=== PATIENT | male | born 1930 | race Caucasian/White ===

== ENCOUNTER → 2016-08-29 | Outpatient (CLI) | payer MEDICARE, OTHER ==
[~2016-08-29] MED LIST: ACET-1757 PO; ASPI-621 PO; BISA5TAB5 PO; CALC-141 PO; CHOL20002 PO; CYAN10005 PO; CYAN10008 PO; CYCL-259 PO; DIGO125T PO; DOCU-30 PO; ENOX80SY4 SQ; EZET1TAB18 PO; FINA5TAB4 PO; FURO40TA6 PO; GABA-826 PO; GLUC1TAB53 PO; GLUC1TAB55 PO; HYDR-3144 PO; IBUP800T PO; INSU100I18 SQ; LEVO1CAP3 PO; LISI-167 PO; MAGN400O4 PO; MELO-184 PO; METF500T4 PO; METO-93 PO; METO25TA91 PO; METO50TA11 PO; MULT-154 PO; OMEG-133 PO; OMEGA 3 PO; PANT40TA5 PO; POTA20TA14 PO; RABE20TA26 PO; RABE20TA5 PO; RANI150T4 PO; SIMV10TA3 PO; WARF2.5T73 PO-COUM; WARF5TAB7 PO; WARF5TAB7 PO-COUM; WARF7.5T PO
== END | disposition home or self-care (01) ==
LOC: CFH 10:23
PROVIDERS: ATTEND Urology
DX: N28.1 Cyst of kidney, acquired (principal); N32.3 Diverticulum of bladder; Z87.442 Personal history of urinary calculi
CPT/HCPCS: 76770

== ENCOUNTER → 2016-10-27 | Outpatient (CLI) | payer MEDICARE, OTHER ==
[~2016-10-27] MED LIST changes: +CYAN100072 PO; -CYAN10008 PO; +DOCU-131 PO; -DOCU-30 PO; -EZET1TAB18 PO; +EZET1TAB26 PO; -HYDR-3144 PO; +HYDR-3245 PO; +IBUP-1223 PO; -IBUP800T PO; -MAGN400O4 PO; +MAGN400O7 PO; -MELO-184 PO; +MELO15TA24 PO; +RABE20TA18 PO; -RABE20TA5 PO
== END | disposition home or self-care (01) ==
LOC: CFH 10:26
PROVIDERS: ATTEND Internal Medicine Cardiovascular Disease
DX: I08.1 Rheumatic disorders of both mitral and tricuspid valves (principal); I10 Essential (primary) hypertension; I48.91 Unspecified atrial fibrillation; E11.9 Type 2 diabetes mellitus without complications; R06.02 Shortness of breath; R42 Dizziness and giddiness; Z95.0 Presence of cardiac pacemaker; Z87.891 Personal history of nicotine dependence
CPT/HCPCS: 93306

== ENCOUNTER 2017-02-04 19:15 | Emergency (ER) | payer MEDICARE, OTHER ==
[~2017-02-04] VITALS: Ht 152.4 cm; Wt 71.0 kg
[~2017-02-04 19:15] MED LIST changes: +METO-264 PO; -METO50TA11 PO
[2017-02-04 19:26] VITALS: BP 111/71
[2017-02-04] MEDS ORDERED: DIPH,PERTUSS(ACELL),TET VAC/PF 0.5 ML IM-VACC ONE ×2 (19:47→20:00)
== END 2017-02-04 20:17 | disposition home or self-care (01) ==
LOC: ED 20:06
DX: S61.451A Open bite of right hand, initial encounter (principal); I10 Essential (primary) hypertension; E11.9 Type 2 diabetes mellitus without complications; W54.0XXA Bitten by dog, initial encounter; Y93.89 Activity, other specified; Y92.89 Other specified places as the place of occurrence of the external cause; Y99.8 Other external cause status
CPT/HCPCS: 90471; 90715

== ENCOUNTER → 2017-10-31 | Outpatient (CLI) | payer MEDICARE, OTHER ==
[~2017-10-31] MED LIST changes: -CHOL20002 PO; +CHOL200052 PO; +METF500T17 PO; -METF500T4 PO; +WARF-36 PO; +WARF-36 PO-COUM; -WARF5TAB7 PO; -WARF5TAB7 PO-COUM
== END | disposition home or self-care (01) ==
LOC: CFH 10:50
PROVIDERS: ATTEND Internal Medicine Cardiovascular Disease
DX: I08.1 Rheumatic disorders of both mitral and tricuspid valves (principal); I10 Essential (primary) hypertension; I48.91 Unspecified atrial fibrillation; E11.9 Type 2 diabetes mellitus without complications; R06.02 Shortness of breath; F17.210 Nicotine dependence, cigarettes, uncomplicated
CPT/HCPCS: 93306

== ENCOUNTER 2018-05-22 08:56 | Emergency (ER) | payer MEDICARE, OTHER ==
[~2018-05-22] VITALS: Ht 172.7 cm; Wt 68.3 kg
[~2018-05-22 08:56] MED LIST changes: -ASPI-621 PO; +ASPI81TA45 PO; +TRAM50TA2 PO; +WARF2.5T32 PO-COUM; -WARF2.5T73 PO-COUM
--- NOTE | 2018-05-22 09:17 | NUR ---
PT AMBULATORY TO ROOM 40 W/ C/O WEAKNESS/DIZZINESS/SOB STARTED LAST NOC. PT STATES HX CHF AND PT STATES IT FEELS LIKE HIS PREVIOUS CHF EXACERBATIONS. SOB WORSE WHEN LAYING DOWN. PER PT NO INCREASED BLE SWELLING. PT RESTING ON GURNEY. WARM BLANKET PROVIDED. MONITORS APPLIED. ERP DR. DIOP AT BEDSIDE.
[2018-05-22] MEDS ORDERED: SODIUM CHLORIDE FLUSH 10ML SYR IVF ONE (09:30)
[2018-05-22] MEDS ORDERED: FUROSEMIDE 40 MG/4 ML IVP ONE (09:30)
[2018-05-22] MEDS ORDERED: MECL-76 PO (09:35)
[2018-05-22] MEDS ORDERED: IRON15TA3 PO (09:35)
[2018-05-22] MEDS ORDERED: RANI150C PO (09:35)
[2018-05-22] MEDS ORDERED: FUROSEMIDE 40 MG/4 ML ONE (09:54)
[2018-05-22 10:11] LABS: MEAN CORPUSCULAR HEMOGLOBIN 35.5 pg (27.5-34.5); MEAN CORPUSCULAR HGB CONC 33.8 g/dL (33.2-36.2); MEAN CORPUSCULAR VOLUME 105.2 fL (81-97); MEAN PLATELET VOLUME 7.4 fL (7.4-10.4); PLATELET COUNT 188 x10^3/uL (130-400); RED BLOOD COUNT 3.68 x10^6/uL (4.38-5.82); RED CELL DISTRIBUTION WIDTH 14.8 % (9.4-14.8)
[2018-05-22 10:12] LABS: ALANINE AMINOTRANSFERASE 17 U/L (12-78); ALBUMIN 3.4 g/dL (3.4-5.0); ANION GAP 5 mmol/L (5-15); CALCIUM 8.5 mg/dL (8.5-10.1); CHLORIDE 101 mmol/L (98-107); CREATININE 1.18 mg/dL (0.7-1.3)
[2018-05-22 10:20] LABS: ALKALINE PHOSPHATASE 103 U/L (45-117); BILIRUBIN,TOTAL 0.6 mg/dL (0.2-1.0); TOTAL PROTEIN 7.1 g/dL (6.4-8.2); TROPONIN I 0.029 ng/mL (0.000-0.045)
[2018-05-22 10:34] LABS: MD YES
[2018-05-22 10:37] LABS: ANISOCYTOSIS 1+; BANDS%(MANUAL) 5 % (0-7); LYMPH#(MANUAL) 0.44 x10^3/uL (1-3.4); LYMPHS% (MANUAL) 11 % (22-44); MONOS#(MANUAL) 0.52 x10^3/uL (0.3-2.7); MONOS% (MANUAL) 13 % (2-9); SEG#(MANUAL) 2.84 x10^3/uL (1.8-6.8); SEGS% (MANUAL) 71 % (42-75)
[2018-05-22 10:38] LABS: <PLATELET ESTIMATE> ADEQUATE; <PLT MORPHOLOGY> NORMAL PLT MORPH; POLYCHROMASIA 1+
--- NOTE | 2018-05-22 10:49 | NUR ---
PT RESTING ON GURNEY. NADN. SALDANA.
--- NOTE | 2018-05-22 10:52 | NUR ---
ECHO AT BEDSIDE.
--- NOTE | 2018-05-22 11:38 | NUR ---
ECHO REMAINS AT BEDSIDE. PT SLEEPING ON HELLEN. NADN. SALDANA.
--- NOTE | 2018-05-22 12:43 | NUR ---
PT RESTING ON GURNEY. NADN. SALDANA. PT CHART REVIEWED AND PLACED FOR RECHECK.
--- NOTE | 2018-05-22 14:43 | NUR ---
RACQUEL BYRD AT BEDSIDE DISCUSSING O2 OPTIONS.
--- NOTE | 2018-05-22 14:59 | NUR ---
SPOKE W/ ROCHELLE WHO STATES OKAY TO DC PT. IF ANY O2 QUESTIONS ARISE, THE PATIENT/ERP WILL BE NOTIFIED
[2018-05-22 15:00] VITALS: BP 106/66
== END 2018-05-22 15:12 | disposition home or self-care (01) ==
LOC: ED 09:54
DX: I48.2 Chronic atrial fibrillation (principal); I11.0 Hypertensive heart disease with heart failure; I50.9 Heart failure, unspecified; E11.9 Type 2 diabetes mellitus without complications; I25.10 Atherosclerotic heart disease of native coronary artery without angina pectoris; Z95.0 Presence of cardiac pacemaker; Z86.73 Personal history of transient ischemic attack (TIA), and cerebral infarction without residual deficits; Z95.2 Presence of prosthetic heart valve; Z95.5 Presence of coronary angioplasty implant and graft
CPT/HCPCS: 36415; 71045; 80053; 83880; 84484; 85025; 87040; 93005; 93306; 96374; 99284; J1940

== ENCOUNTER → 2019-01-21 | Outpatient (CLI) | payer MEDICARE, OTHER ==
[~2019-01-21] MED LIST changes: -ACET-1757 PO; +ACET-2065 PO; +CYAN-27 PO; -CYAN10005 PO; +IRON15TA3 PO; +MECL-76 PO; +RANI150C PO
== END | disposition home or self-care (01) ==
LOC: CFH 12:06
PROVIDERS: ATTEND Nurse Practitioner Family
DX: I65.23 Occlusion and stenosis of bilateral carotid arteries (principal)
CPT/HCPCS: 93880

== ENCOUNTER → 2019-07-19 | Outpatient (CLI) | payer MEDICARE, OTHER ==
[~2019-07-19] MED LIST changes: -DIGO125T PO; +DIGO125T85 PO; +SIMV10TA18 PO; -SIMV10TA3 PO
== END | disposition home or self-care (01) ==
LOC: CVU 13:49
PROVIDERS: ATTEND Internal Medicine Cardiovascular Disease
DX: I65.23 Occlusion and stenosis of bilateral carotid arteries (principal)
CPT/HCPCS: 93880

== ENCOUNTER 2019-09-19 16:12 | Emergency (ER) | payer MEDICARE, OTHER ==
[~2019-09-19] VITALS: Ht 167.6 cm; Wt 66.0 kg
[2019-09-19 17:01] LABS: BASOPHILS # (AUTO) 0.03 x10^3/uL (0-0.1); BASOPHILS % (AUTO) 1 % (0-1); EOSINOPHILS # (AUTO) 0.04 x10^3/uL (0-0.4); EOSINOPHILS % (AUTO) 1 % (1-7); LYMPHOCYTES # (AUTO) 0.73 x10^3/uL (1-3.4); LYMPHOCYTES % (AUTO) 12 % (22-44); MD NO; MEAN CORPUSCULAR HEMOGLOBIN 34.7 pg (27.5-34.5); MEAN CORPUSCULAR HGB CONC 32.9 g/dL (33.2-36.2); MEAN CORPUSCULAR VOLUME 105.3 fL (81-97); MEAN PLATELET VOLUME 7.5 fL (7.4-10.4); MONOCYTES # (AUTO) 0.76 x10^3/uL (0.2-0.8); MONOCYTES % (AUTO) 12 % (2-9); NEUTROPHILS # (AUTO) 4.66 x10^3/uL (1.8-6.8); NEUTROPHILS % (AUTO) 75 % (42-75); PLATELET COUNT 256 x10^3/uL (130-400); RED BLOOD COUNT 3.84 x10^6/uL (4.38-5.82); RED CELL DISTRIBUTION WIDTH 16.3 % (9.4-14.8)
[2019-09-19 17:06] LABS: ALBUMIN 3.8 g/dL (3.4-5.0); ANION GAP 5 mmol/L (5-15); CALCIUM 9.5 mg/dL (8.5-10.1); CHLORIDE 109 mmol/L (98-107)
[2019-09-19 17:12] LABS: ALANINE AMINOTRANSFERASE 28 U/L (12-78); ALKALINE PHOSPHATASE 136 U/L (45-117); BILIRUBIN,TOTAL 0.5 mg/dL (0.2-1.0); TOTAL PROTEIN 7.7 g/dL (6.4-8.2); TROPONIN I < 0.015 ng/mL (0.000-0.045)
--- NOTE | 2019-09-19 18:18 | NUR ---
PEDIATRIC PHYSICAL THERAPIST: PT TO ROOM FROM SANKET WINN
[2019-09-19] MEDS ORDERED: FUROSEMIDE 20 MG TABLET PO ONE (19:00)
[2019-09-19] MEDS ORDERED: FUROSEMIDE 20 MG TABLET ONE (19:19)
--- NOTE | 2019-09-19 19:23 | NUR ---
A&OX4, RESP EVEN & UNLABORED, SPEECH CLEAR, SKIN WNL. STATES HE EXPERIENCED DYSPNEA IN THE MIDDLE OF THE NIGHT FOR PAST COUPLE OF NIGHTS. DENIES SOB, DYSPNEA CURRENTLY. REPORTS HX PACEMAKER, COCHLEAR IMPLANT RT SIDED, HEARING AID LEFT EAR, "BALANCE PROBLEM", CANE USE. DENIES DIZZINESS W/ DYSPNEA.
[2019-09-19 19:34] VITALS: BP 137/62
[2019-09-19] MEDS ORDERED: METO-282 PO (19:38)
[2019-09-19] MEDS ORDERED: FURO20TA3 PO (19:38)
== END 2019-09-19 19:52 ==
LOC: ED 19:46
DX: I11.0 Hypertensive heart disease with heart failure (principal); I50.9 Heart failure, unspecified; R06.00 Dyspnea, unspecified; R19.7 Diarrhea, unspecified; R06.02 Shortness of breath; I44.7 Left bundle-branch block, unspecified; E11.9 Type 2 diabetes mellitus without complications; I48.91 Unspecified atrial fibrillation; F17.200 Nicotine dependence, unspecified, uncomplicated; Z95.0 Presence of cardiac pacemaker; Z86.73 Personal history of transient ischemic attack (TIA), and cerebral infarction without residual deficits
CPT/HCPCS: 36415; 71045; 80053; 83880; 84484; 85025; 93005; 99285

== ENCOUNTER 2019-10-10 17:46 | Inpatient (IN) | payer MEDICARE, OTHER ==
[~2019-10-10] VITALS: Ht 165.1 cm; Wt 62.8 kg
[~2019-10-10 17:46] MED LIST changes: +AMIO100T4 PO; +FURO20TA3 PO; +METO-282 PO; -PANT40TA5 PO; +PANT40TA6 PO
[2019-10-10] MEDS ORDERED: SODIUM CHLORIDE FLUSH 10ML SYR IVF ONE (18:30)
[2019-10-10 18:44] LABS: BASOPHILS # (AUTO) 0.01 x10^3/uL (0-0.1); BASOPHILS % (AUTO) 0 % (0-1); EOSINOPHILS # (AUTO) 0.01 x10^3/uL (0-0.4); EOSINOPHILS % (AUTO) 0 % (1-7); LYMPHOCYTES # (AUTO) 0.54 x10^3/uL (1-3.4); LYMPHOCYTES % (AUTO) 7 % (22-44); MD NO; MEAN CORPUSCULAR HEMOGLOBIN 34.8 pg (27.5-34.5); MEAN CORPUSCULAR HGB CONC 33.1 g/dL (33.2-36.2); MEAN PLATELET VOLUME 7.4 fL (7.4-10.4); MONOCYTES # (AUTO) 0.86 x10^3/uL (0.2-0.8); MONOCYTES % (AUTO) 11 % (2-9); NEUTROPHILS # (AUTO) 6.24 x10^3/uL (1.8-6.8); NEUTROPHILS % (AUTO) 81 % (42-75); PLATELET COUNT 300 x10^3/uL (130-400); RED BLOOD COUNT 3.56 x10^6/uL (4.38-5.82); RED CELL DISTRIBUTION WIDTH 15.5 % (9.4-14.8)
[2019-10-10 18:53] LABS: ALBUMIN 3.2 g/dL (3.4-5.0); ANION GAP 6 mmol/L (5-15); CALCIUM 9.4 mg/dL (8.5-10.1); CHLORIDE 106 mmol/L (98-107); CREATININE 1.16 mg/dL (0.7-1.3)
[2019-10-10 18:57] LABS: TROPONIN I < 0.015 ng/mL (0.000-0.045)
[2019-10-10] MEDS ORDERED: ACETAMINOPHEN 325 MG TABLET PO PRN (20:00)
[2019-10-10] MEDS ORDERED: POLYETHYLENE GLYCOL 17 GM PACKET PO PRN (20:00)
[2019-10-10] MEDS ORDERED: BISACODYL 10 MG SUPP PR PRN (20:00)
[2019-10-10] MEDS ORDERED: ONDANSETRON ODT 4 MG PO PRN (20:00)
[2019-10-10] MEDS ORDERED: EZETIMIBE PO SCH (21:00)
[2019-10-10] MEDS: IRON CARBONYL 65 MG PO SCH (21:00)
[2019-10-10] MEDS: GABAPENTIN 100 MG CAPSULE PO SCH (21:00)
[2019-10-10] MEDS: GLUCOSAMINE HCL PO SCH (21:00)
[2019-10-10] MEDS: CHONDR SU A NA PO SCH (21:00)
[2019-10-10] MEDS ORDERED: SIMVASTATIN PO SCH (21:00)
[2019-10-10] MEDS: SODIUM CHLORIDE FLUSH 10ML SYR IVF SCH (21:00)
[2019-10-10] MEDS: metFORMIN 500 MG TABLET PO SCH (22:40)
[2019-10-10] MEDS: CHOLECALCIFEROL 1,000 UNIT TABLET PO SCH (22:40)
[2019-10-10] MEDS: EZETIMIBE 10 MG TABLET PO SCH (22:48)
[2019-10-10] MEDS: SIMVASTATIN 10 MG TABLET PO SCH (22:48)
[2019-10-10 22:50] VITALS: BP 142/74
[2019-10-10] MEDS: FINASTERIDE 5 MG TABLET PO SCH (23:50)
[2019-10-11 02:17] VITALS: BP 88/51
[2019-10-11 05:32] LABS: BASOPHILS # (AUTO) 0.01 x10^3/uL (0-0.1); BASOPHILS % (AUTO) 0 % (0-1); EOSINOPHILS # (AUTO) 0.12 x10^3/uL (0-0.4); EOSINOPHILS % (AUTO) 2 % (1-7); LYMPHOCYTES # (AUTO) 0.64 x10^3/uL (1-3.4); LYMPHOCYTES % (AUTO) 9 % (22-44); MD NO; MEAN CORPUSCULAR HEMOGLOBIN 34.9 pg (27.5-34.5); MEAN CORPUSCULAR HGB CONC 33.1 g/dL (33.2-36.2); MEAN CORPUSCULAR VOLUME 105.5 fL (81-97); MEAN PLATELET VOLUME 7.6 fL (7.4-10.4); MONOCYTES # (AUTO) 0.88 x10^3/uL (0.2-0.8); MONOCYTES % (AUTO) 12 % (2-9); NEUTROPHILS # (AUTO) 5.81 x10^3/uL (1.8-6.8); NEUTROPHILS % (AUTO) 78 % (42-75); PLATELET COUNT 250 x10^3/uL (130-400); RED BLOOD COUNT 3.49 x10^6/uL (4.38-5.82); RED CELL DISTRIBUTION WIDTH 15.9 % (9.4-14.8)
[2019-10-11 05:39] LABS: CHLORIDE 106 mmol/L (98-107)
[2019-10-11 05:50] LABS: ANION GAP 6 mmol/L (5-15); CALCIUM 9.3 mg/dL (8.5-10.1); CREATININE 0.87 mg/dL (0.7-1.3)
[2019-10-11 06:25] VITALS: BP 95/59
[2019-10-11] MEDS: DIGOXIN 0.125 MG TABLET PO SCH (09:00)
[2019-10-11] MEDS: GLUCOSAMINE HCL PO SCH ×2 (09:00→21:39)
[2019-10-11] MEDS: FUROSEMIDE 20 MG TABLET PO SCH (09:00)
[2019-10-11] MEDS: CHOLECALCIFEROL 1,000 UNIT TABLET PO SCH ×2 (09:00→21:14)
[2019-10-11] MEDS: IRON CARBONYL 65 MG PO SCH ×2 (09:00→21:40)
[2019-10-11] MEDS: SENNA/DOCUSATE TABLET PO SCH (09:00)
[2019-10-11] MEDS: GABAPENTIN 100 MG CAPSULE PO SCH ×2 (09:00→21:14)
[2019-10-11] MEDS: metFORMIN 500 MG TABLET PO SCH ×3 (09:00→21:14)
[2019-10-11] MEDS: CYANOCOBALAMIN 1,000 MCG TABLET PO SCH (09:00)
[2019-10-11] MEDS: METOPROLOL SUCCINATE 25 MG TAB.ER.24H PO SCH (09:00)
[2019-10-11] MEDS: CHONDR SU A NA PO SCH ×2 (09:00→21:39)
[2019-10-11] MEDS: AMIODARONE 200 MG TABLET PO SCH (09:00)
[2019-10-11] MEDS: MULTIVITAMIN 1 TABLET PO SCH (09:00)
[2019-10-11] MEDS: FAMOTIDINE 20 MG TABLET PO SCH (09:00)
[2019-10-11 09:29] VITALS: BP 98/66
[2019-10-11] MEDS: SODIUM CHLORIDE FLUSH 10ML SYR IVF SCH ×2 (11:59→21:15)
[2019-10-11] MEDS ORDERED: LIDOCAINE 1%, 10ML ONE (13:19)
[2019-10-11] MEDS ORDERED: FENTANYL PF 100 MCG/2ML ONE (13:29)
[2019-10-11] MEDS ORDERED: MIDAZOLAM 1 MG/ML, 5ML ONE (13:30)
[2019-10-11 14:45] VITALS: BP 118/68
[2019-10-11] MEDS ORDERED: RABEPRAZOLE SODIUM PO SCH (18:00)
[2019-10-11 18:47] VITALS: BP 104/65
[2019-10-11] MEDS: EZETIMIBE 10 MG TABLET PO SCH (21:14)
[2019-10-11] MEDS: FINASTERIDE 5 MG TABLET PO SCH (21:14)
[2019-10-11] MEDS: SIMVASTATIN 10 MG TABLET PO SCH (21:15)
[2019-10-12 01:02] VITALS: BP 98/59
[2019-10-12 04:32] LABS: MEAN CORPUSCULAR HEMOGLOBIN 34.8 pg (27.5-34.5); MEAN CORPUSCULAR HGB CONC 32.8 g/dL (33.2-36.2); MEAN PLATELET VOLUME 7.4 fL (7.4-10.4); PLATELET COUNT 260 x10^3/uL (130-400); RED BLOOD COUNT 3.65 x10^6/uL (4.38-5.82); RED CELL DISTRIBUTION WIDTH 15.4 % (9.4-14.8)
[2019-10-12 05:13] LABS: BASOPHILS # (AUTO) 0.01 x10^3/uL (0-0.1); BASOPHILS % (AUTO) 0 % (0-1); EOSINOPHILS # (AUTO) 0.06 x10^3/uL (0-0.4); EOSINOPHILS % (AUTO) 1 % (1-7); LYMPHOCYTES # (AUTO) 0.72 x10^3/uL (1-3.4); LYMPHOCYTES % (AUTO) 8 % (22-44); MD SCAN; MONOCYTES # (AUTO) 1.21 x10^3/uL (0.2-0.8); MONOCYTES % (AUTO) 13 % (2-9); NEUTROPHILS # (AUTO) 6.97 x10^3/uL (1.8-6.8); NEUTROPHILS % (AUTO) 78 % (42-75)
[2019-10-12 08:10] VITALS: BP 102/66
[2019-10-12] MEDS: CHONDR SU A NA PO SCH (08:58)
[2019-10-12] MEDS: GLUCOSAMINE HCL PO SCH (08:58)
[2019-10-12] MEDS: SODIUM CHLORIDE FLUSH 10ML SYR IVF SCH (08:58)
[2019-10-12] MEDS: IRON CARBONYL 65 MG PO SCH (08:59)
[2019-10-12] MEDS: METOPROLOL SUCCINATE 25 MG TAB.ER.24H PO SCH (09:00)
[2019-10-12] MEDS: FUROSEMIDE 20 MG TABLET PO SCH (09:00)
[2019-10-12] MEDS: AMIODARONE 200 MG TABLET PO SCH (09:16)
[2019-10-12] MEDS: SENNA/DOCUSATE TABLET PO SCH (09:17)
[2019-10-12] MEDS: MULTIVITAMIN 1 TABLET PO SCH (09:17)
[2019-10-12] MEDS: CYANOCOBALAMIN 1,000 MCG TABLET PO SCH (09:17)
[2019-10-12] MEDS: FAMOTIDINE 20 MG TABLET PO SCH (09:18)
[2019-10-12] MEDS: metFORMIN 500 MG TABLET PO SCH (09:18)
[2019-10-12] MEDS: GABAPENTIN 100 MG CAPSULE PO SCH (09:18)
[2019-10-12] MEDS: DIGOXIN 0.125 MG TABLET PO SCH (09:18)
[2019-10-12] MEDS: CHOLECALCIFEROL 1,000 UNIT TABLET PO SCH (09:20)
== END 2019-10-12 15:31 | disposition home health service (06) | DRG 180 ==
LOC: ED 19:51 → EDIP 20:49 → 3N 21:55 → 4NW 10-11 14:50
PROVIDERS: ADMIT Family Medicine; ATTEND Hospitalist
PROC: 0W993ZZ Drainage of Right Pleural Cavity, Percutaneous Approach (ICD-10-PCS; principal; 2019-10-11)
PROC: 0BBK3ZX Excision of Right Lung, Percutaneous Approach, Diagnostic (ICD-10-PCS; 2019-10-11)
DX: C78.01 Secondary malignant neoplasm of right lung (principal); J96.01 Acute respiratory failure with hypoxia; J91.0 Malignant pleural effusion; D68.69 Other thrombophilia; I50.32 Chronic diastolic (congestive) heart failure; I48.20 Chronic atrial fibrillation, unspecified; R91.8 Other nonspecific abnormal finding of lung field; D53.9 Nutritional anemia, unspecified; E11.9 Type 2 diabetes mellitus without complications; F17.290 Nicotine dependence, other tobacco product, uncomplicated; I11.0 Hypertensive heart disease with heart failure; I25.10 Atherosclerotic heart disease of native coronary artery without angina pectoris; I27.20 Pulmonary hypertension, unspecified; I65.23 Occlusion and stenosis of bilateral carotid arteries; K76.9 Liver disease, unspecified; N40.0 Benign prostatic hyperplasia without lower urinary tract symptoms; Z85.46 Personal history of malignant neoplasm of prostate; Z86.711 Personal history of pulmonary embolism; Z86.73 Personal history of transient ischemic attack (TIA), and cerebral infarction without residual deficits; Z87.442 Personal history of urinary calculi; Z95.0 Presence of cardiac pacemaker; Z95.2 Presence of prosthetic heart valve; Z90.49 Acquired absence of other specified parts of digestive tract
CPT/HCPCS: 32405; 32555; 36415; 71045; 77012; 80048; 80162; 82040; 83880; 84484; 85025; 87070; 87205; 88112; 88305; 88333; 88341; 88342; 88360; 89051; 93005; 99156; 99157; G0378; J2250; J3010

== ENCOUNTER 2019-10-18 07:26 | Outpatient (CLI) | payer MEDICARE, OTHER ==
[~2019-10-18 07:26] MED LIST changes: -LIDOCAINE 1%, 10ML ONE
== END 2019-10-18 23:59 | disposition home or self-care (01) ==
LOC: ROC 07:26
PROVIDERS: ATTEND Radiology Radiation Oncology
DX: C34.81 Malignant neoplasm of overlapping sites of right bronchus and lung (principal); I13.0 Hypertensive heart and chronic kidney disease with heart failure and stage 1 through stage 4 chronic kidney disease, or unspecified chronic kidney disease; E11.22 Type 2 diabetes mellitus with diabetic chronic kidney disease; I50.32 Chronic diastolic (congestive) heart failure; N18.9 Chronic kidney disease, unspecified; I48.20 Chronic atrial fibrillation, unspecified; I25.10 Atherosclerotic heart disease of native coronary artery without angina pectoris; E11.42 Type 2 diabetes mellitus with diabetic polyneuropathy; Z90.49 Acquired absence of other specified parts of digestive tract; Z87.891 Personal history of nicotine dependence; Z85.46 Personal history of malignant neoplasm of prostate; Z95.0 Presence of cardiac pacemaker; Z86.73 Personal history of transient ischemic attack (TIA), and cerebral infarction without residual deficits
CPT/HCPCS: G0463

== ENCOUNTER → 2019-10-18 | Outpatient (CLI) | payer MEDICARE, OTHER ==
[~2019-10-18] MED LIST changes: +LIDOCAINE 1%, 10ML ONE
== END | disposition home or self-care (01) ==
LOC: RAD 15:22
PROVIDERS: ATTEND Radiology Radiation Oncology
DX: J90 Pleural effusion, not elsewhere classified (principal); C34.81 Malignant neoplasm of overlapping sites of right bronchus and lung
CPT/HCPCS: 32555

== ENCOUNTER → 2019-10-22 | Outpatient (CLI) | payer MEDICARE, OTHER ==
[~2019-10-22] MED LIST changes: +LIDOCAINE 1%, 10ML ONE
== END | disposition home or self-care (01) ==
LOC: RAD 13:59
PROVIDERS: ATTEND Internal Medicine Hematology & Oncology
DX: J90 Pleural effusion, not elsewhere classified (principal); C34.81 Malignant neoplasm of overlapping sites of right bronchus and lung; R06.02 Shortness of breath
CPT/HCPCS: 32555

== ENCOUNTER → 2019-10-25 | Outpatient (CLI) | payer MEDICARE, OTHER | END | disposition home or self-care (01) | LOC: RAD 14:58 | PROVIDERS: ATTEND Radiology Radiation Oncology | DX: J90 Pleural effusion, not elsewhere classified (principal); C34.81 Malignant neoplasm of overlapping sites of right bronchus and lung; R06.02 Shortness of breath | CPT/HCPCS: 32555 ==

== ENCOUNTER 2019-10-29 16:02 | Outpatient (CLI) | payer MEDICARE, OTHER | END 2019-10-29 23:59 | disposition home or self-care (01) | LOC: RAD 16:02 | PROVIDERS: ATTEND Internal Medicine Hematology & Oncology | DX: J90 Pleural effusion, not elsewhere classified (principal); C34.81 Malignant neoplasm of overlapping sites of right bronchus and lung; F17.210 Nicotine dependence, cigarettes, uncomplicated; Z79.899 Other long term (current) drug therapy; Z72.89 Other problems related to lifestyle; Z82.49 Family history of ischemic heart disease and other diseases of the circulatory system | CPT/HCPCS: 32555; 71045 ==

== ENCOUNTER 2019-11-01 12:14 | Outpatient (CLI) | payer MEDICARE, OTHER ==
[~2019-11-01 12:14] MED LIST changes: -LIDOCAINE 1%, 10ML ONE
[2019-11-01] MEDS ORDERED: LIDOCAINE 1%, 10ML ONE (12:26)
== END 2019-11-01 23:59 | disposition home or self-care (01) ==
LOC: RAD 12:14
PROVIDERS: ATTEND Internal Medicine Hematology & Oncology
DX: J90 Pleural effusion, not elsewhere classified (principal); C34.81 Malignant neoplasm of overlapping sites of right bronchus and lung; R06.02 Shortness of breath
CPT/HCPCS: 32555

== ENCOUNTER 2019-11-05 12:15 | Outpatient (CLI) | payer MEDICARE, OTHER ==
[~2019-11-05 12:15] MED LIST changes: +LIDOCAINE 1%, 10ML ONE
== END 2019-11-05 23:59 | disposition home or self-care (01) ==
LOC: RAD 12:15
PROVIDERS: ATTEND Internal Medicine Hematology & Oncology
DX: J90 Pleural effusion, not elsewhere classified (principal); C34.81 Malignant neoplasm of overlapping sites of right bronchus and lung
CPT/HCPCS: 32555

== ENCOUNTER 2019-11-12 14:03 | Outpatient (CLI) | payer MEDICARE, OTHER ==
[~2019-11-12 14:03] MED LIST changes: -LIDOCAINE 1%, 10ML ONE
[2019-11-12] MEDS ORDERED: LIDOCAINE 1%, 10ML ONE (14:21)
== END 2019-11-12 23:59 | disposition home or self-care (01) ==
LOC: RAD 14:03
PROVIDERS: ATTEND Internal Medicine Hematology & Oncology
DX: J90 Pleural effusion, not elsewhere classified (principal); C34.81 Malignant neoplasm of overlapping sites of right bronchus and lung
CPT/HCPCS: 32555

== ENCOUNTER 2019-11-15 12:37 | Outpatient (CLI) | payer MEDICARE, OTHER ==
[2019-11-15] MEDS ORDERED: LIDOCAINE 1%, 10ML ONE (12:38)
== END 2019-11-15 23:59 | disposition home or self-care (01) ==
LOC: RAD 12:37
PROVIDERS: ATTEND Internal Medicine Hematology & Oncology
DX: C34.81 Malignant neoplasm of overlapping sites of right bronchus and lung (principal); F17.210 Nicotine dependence, cigarettes, uncomplicated; Z79.899 Other long term (current) drug therapy; Z72.89 Other problems related to lifestyle; Z82.49 Family history of ischemic heart disease and other diseases of the circulatory system
CPT/HCPCS: 32555

== ENCOUNTER → 2019-11-19 | Outpatient (CLI) | payer MEDICARE, OTHER ==
[~2019-11-19] MED LIST changes: +LIDOCAINE 1%, 10ML ONE
== END | disposition home or self-care (01) ==
LOC: RAD 12:23
PROVIDERS: ATTEND Internal Medicine Hematology & Oncology
DX: C34.81 Malignant neoplasm of overlapping sites of right bronchus and lung (principal)
CPT/HCPCS: 32555

== ENCOUNTER → 2019-11-22 | Outpatient (CLI) | payer MEDICARE, OTHER | END | disposition home or self-care (01) | LOC: RAD 12:16 | PROVIDERS: ATTEND Internal Medicine Hematology & Oncology | DX: J90 Pleural effusion, not elsewhere classified (principal); F17.210 Nicotine dependence, cigarettes, uncomplicated; Z79.899 Other long term (current) drug therapy; Z72.89 Other problems related to lifestyle; Z82.49 Family history of ischemic heart disease and other diseases of the circulatory system | CPT/HCPCS: 32555 ==

== ENCOUNTER 2019-11-29 11:52 | Outpatient (CLI) | payer MEDICARE, OTHER ==
[~2019-11-29 11:52] MED LIST changes: -LIDOCAINE 1%, 10ML ONE
[2019-11-29] MEDS ORDERED: LIDOCAINE 1%, 10ML ONE (12:19)
== END 2019-11-29 23:59 | disposition home or self-care (01) ==
LOC: RAD 11:52
PROVIDERS: ATTEND Internal Medicine Hematology & Oncology
DX: C34.81 Malignant neoplasm of overlapping sites of right bronchus and lung (principal)
CPT/HCPCS: 32555

== ENCOUNTER 2019-11-29 15:56 | Inpatient (IN) | payer MEDICARE, OTHER ==
[~2019-11-29] VITALS: Ht 165.1 cm; Wt 60.8 kg
--- NOTE | 2019-11-29 16:57 | NUR ---
THIS IS AN 89 YO MALE REFERRED FROM ONCOLOGIST OFFICE FOR "CRITICALLY LOW MAGNESIUM LEVEL". 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 DENIES HEART PALPITATIONS, DENIES SOB OR WEAKNESS. +DIARRHEA. PATIENT IS A&OX4, AMBULATORY WITH STEADY GAIT. 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 HX AFIB, TAKING DIGOXIN. PREVIOUSLY ON BLOOD THINNER BUT SUSTAINED GI BLEED/BLEEDING ULCERS AND WAS TAKEN OFF. ALL MONITORING IN PLACE, VSS, NADN AT THIS TIME. CALL LIGHT IN REACH. PIV PLACED, LABS DRAWN AND SENT TO LAB
[2019-11-29 17:07] LABS: MEAN CORPUSCULAR HEMOGLOBIN 34.8 pg (27.5-34.5); MEAN CORPUSCULAR HGB CONC 33.5 g/dL (33.2-36.2); MEAN PLATELET VOLUME 7.7 fL (7.4-10.4); PLATELET COUNT 198 x10^3/uL (130-400); RED BLOOD COUNT 2.82 x10^6/uL (4.38-5.82); RED CELL DISTRIBUTION WIDTH 15.1 % (9.4-14.8)
[2019-11-29 17:14] LABS: ALBUMIN 2.8 g/dL (3.4-5.0); ANION GAP 7 mmol/L (5-15); CALCIUM 8.3 mg/dL (8.5-10.1); CHLORIDE 105 mmol/L (98-107)
[2019-11-29 17:27] LABS: MD YES
[2019-11-29 17:31] LABS: ALANINE AMINOTRANSFERASE 16 U/L (12-78); ALKALINE PHOSPHATASE 171 U/L (45-117); BILIRUBIN,TOTAL 0.3 mg/dL (0.2-1.0); CREATININE 1.03 mg/dL (0.7-1.3); TOTAL PROTEIN 6.4 g/dL (6.4-8.2)
[2019-11-29 17:40] LABS: BAND#(MANUAL) 3.71 x10^3/uL; BANDS%(MANUAL) 17 % (0-7); LYMPH#(MANUAL) 0.65 x10^3/uL (1-3.4); LYMPHS% (MANUAL) 3 % (22-44); METAMYELOCYTES# (MANUAL) 0.44 x10^3/uL (0-0); METAMYELOCYTES% (MANUAL) 2 % (0-1); MONOS#(MANUAL) 3.05 x10^3/uL (0.3-2.7); MONOS% (MANUAL) 14 % (2-9); PROGRANULOCYTES# (MANUAL) 1.53 x10^3/uL (0-0); PROGRANULOCYTES% (MANUAL) 7 % (0-0); SEGS% (MANUAL) 57 % (42-75)
[2019-11-29 17:41] LABS: <PLATELET ESTIMATE> ADEQUATE; TOXIC GRAN 3+
[2019-11-29 17:42] LABS: BASOPHILLIC STIPPLING 1+; GIANT PLATELETS 1+; LARGE PLATELETS 1+
[2019-11-29 17:44] LABS: ANISOCYTOSIS 2+; HYPOCHROMIA 2+; POLYCHROMASIA 1+; SCHISTOCYTES 1+
[2019-11-29 17:45] LABS: STOMATOCYTES 1+
[2019-11-29 17:46] LABS: OVALOCYTES 1+; TEAR DROPS 1+
--- NOTE | 2019-11-29 18:03 | NUR ---
PATIENT RESTING ON GURNEY, RESPIRATIONS EVEN AND UNLABORED. VSS, NADN. ALL RESULTS BACK, PATIENT UP FOR RECHECK, ERP AWARE
[2019-11-29] MEDS ORDERED: MAGNESIUM SULFATE PMX 4GM/100M 100 ML ONE (18:23)
[2019-11-29] MEDS ORDERED: SODIUM CHLORIDE FLUSH 10ML SYR IVF ONE (18:30)
[2019-11-29] MEDS ORDERED: MAGNESIUM SULFATE PMX 4GM/100M 100 ML IVPB ONE (18:30)
[2019-11-29] MEDS ORDERED: SODIUM CHLORIDE 0.9% 1,000ML IVBOLUS ONE (18:30)
--- NOTE | 2019-11-29 18:52 | NUR ---
PATIENT MEDICATED PER EMAR TOLERATED WELL
[2019-11-29 19:07] LABS: MICROSCOPIC NOT IND
[2019-11-29] MEDS ORDERED: ACETAMINOPHEN 325 MG TABLET PO PRN (20:30)
[2019-11-29] MEDS ORDERED: CYCLOBENZAPRINE 10 MG TABLET PO PRN (20:30)
[2019-11-29] MEDS ORDERED: BISACODYL 10 MG SUPP PR PRN (20:30)
[2019-11-29] MEDS: SODIUM CHLORIDE 0.9% 1,000 ML IV SCH (20:30)
[2019-11-29] MEDS ORDERED: ONDANSETRON ODT 4 MG PO PRN (20:30)
[2019-11-29] MEDS ORDERED: POLYETHYLENE GLYCOL 17 GM PACKET PO PRN (20:30)
[2019-11-29] MEDS: HEPARIN 5,000 UNITS/ML, 1ML SQ SCH (20:30)
[2019-11-29] MEDS ORDERED: HEPARIN 5,000 UNITS/ML, 1ML ONE (20:59)
[2019-11-29] MEDS ORDERED: CEFTRIAXONE PMX 1GM/50ML 50 ML ONE (20:59)
[2019-11-29] MEDS ORDERED: metFORMIN 500 MG TABLET ONE (20:59)
[2019-11-29] MEDS: metFORMIN 500 MG TABLET PO SCH (21:00)
[2019-11-29] MEDS: FINASTERIDE 5 MG TABLET PO SCH (21:00)
[2019-11-29] MEDS ORDERED: CHONDR SU A NA HOMEMEDPO SCH (21:00)
[2019-11-29] MEDS ORDERED: CEFTRIAXONE PMX 1GM/50ML 50 ML IV ONE (21:00)
[2019-11-29] MEDS ORDERED: GLUCOSAMINE HCL HOMEMEDPO SCH (21:00)
--- NOTE | 2019-11-29 21:40 | NUR ---
PATIENT PROVIDED WITH SANDWICH, MEDICATED PER EMAR. TOELRATED WELL. MAG INFUSION STOPPED TEMPORARILY TO RUN ROCEPHIN. PER PHARMACY, MEDS ARE NOT COMPATIBLE TO RUN TOGETHER.
[2019-11-29] MEDS: EZETIMIBE 10 MG TABLET PO SCH (21:48)
[2019-11-29] MEDS: FERROUS SULFATE 325 MG TABLET PO SCH (21:48)
[2019-11-29] MEDS: GABAPENTIN 100 MG CAPSULE PO SCH (21:48)
[2019-11-29] MEDS: CHOLECALCIFEROL 1,000 UNIT TABLET PO SCH (21:49)
--- NOTE | 2019-11-29 22:30 | NUR ---
PATIENT SLEEPING IN HOSPITAL BED, RESPIRATIONS EVEN AND UNLABORED. VSS, NADN
--- NOTE | 2019-11-29 22:35 | NUR ---
PATIENT PLACED ON 2.5L NC DUE TO DESAT TO 86% WHILE SLEEPING. MONITORING IN PLACE, VSS.
--- NOTE | 2019-11-29 23:24 | NUR ---
PATIENT SLEEPING IN HOSPITAL BED, RESPIRATIONS EVEN AND UNLABORED. VSS, NADN. CALL LIGHT IN REACH. MAINTINENCE IVF RUNNING
--- NOTE | 2019-11-30 00:30 | NUR ---
PATIENT SLEEPING IN HOSPITAL BED, RESPIRATIONS EVEN AND UNLABORED. VSS, NADN. CALL LIGHT IN REACH. MAINTINENCE IVF RUNNING
--- NOTE | 2019-11-30 01:49 | NUR ---
PATIENT SLEEPING IN HOSPITAL BED, RESPIRATIONS EVEN AND UNLABORED. VSS, NADN. CALL LIGHT IN REACH. MAINTINENCE IVF RUNNING
--- NOTE | 2019-11-30 02:43 | NUR ---
REPORT OF PT FROM RACQUEL SADLER AT THIS TIME AND ASSUMING CARE OF PT
--- NOTE | 2019-11-30 02:43 | NUR ---
report given to RACQUEL King. Plan of care discussed
--- NOTE | 2019-11-30 03:58 | NUR ---
PT ASLEEP IN [facility] AT THIS TIME; JOVAN. PT VSS AND UPDATED IN EMR AT THIS TIME.
[2019-11-30] MEDS: HEPARIN 5,000 UNITS/ML, 1ML SQ SCH ×3 (04:30→21:30)
[2019-11-30 05:03] LABS: MEAN CORPUSCULAR HEMOGLOBIN 34.7 pg (27.5-34.5); MEAN CORPUSCULAR HGB CONC 33.3 g/dL (33.2-36.2); MEAN PLATELET VOLUME 7.9 fL (7.4-10.4); PLATELET COUNT 182 x10^3/uL (130-400); RED BLOOD COUNT 2.51 x10^6/uL (4.38-5.82); RED CELL DISTRIBUTION WIDTH 15.1 % (9.4-14.8)
[2019-11-30 05:17] LABS: CHLORIDE 109 mmol/L (98-107)
[2019-11-30 05:22] LABS: ANION GAP 5 mmol/L (5-15); CALCIUM 8.2 mg/dL (8.5-10.1); CREATININE 0.92 mg/dL (0.7-1.3)
[2019-11-30 06:06] LABS: MD YES
[2019-11-30 06:08] LABS: BAND#(MANUAL) 1.66 x10^3/uL; BANDS%(MANUAL) 11 % (0-7); LYMPHS% (MANUAL) 4 % (22-44); METAMYELOCYTES# (MANUAL) 1.21 x10^3/uL (0-0); METAMYELOCYTES% (MANUAL) 8 % (0-1); MONOS#(MANUAL) 0.76 x10^3/uL (0.3-2.7); MONOS% (MANUAL) 5 % (2-9); MYELOCYTES% (MANUAL) 4 % (0-0); SEG#(MANUAL) 10.27 x10^3/uL (1.8-6.8); SEGS% (MANUAL) 68 % (42-75)
[2019-11-30 06:09] LABS: TOXIC GRAN 1+
[2019-11-30 06:10] LABS: ANISOCYTOSIS 1+; OVALOCYTES 1+; POLYCHROMASIA 1+
[2019-11-30] MEDS ORDERED: HEPARIN 5,000 UNITS/ML, 1ML ONE ×2 (06:13→12:34)
[2019-11-30 06:15] LABS: <PLATELET ESTIMATE> ADEQUATE; <PLT MORPHOLOGY> NORMAL PLT MORPH
--- NOTE | 2019-11-30 07:20 | NUR ---
PT ASLEEP IN BED, NAD NOTED AT THIS TIME. AWAITING MEDS FROM PHARMACY AND BREAKFAST.
--- NOTE | 2019-11-30 08:10 | NUR ---
PT REMAINS ASLEEP, RESPIRATIONS EVEN AND UNLABORED. NAD NOTED AT THIS TIME.
[2019-11-30] MEDS ORDERED: FAMOTIDINE 20 MG TABLET ONE (08:31)
[2019-11-30] MEDS ORDERED: metFORMIN 500 MG TABLET ONE ×2 (08:32→16:35)
[2019-11-30] MEDS ORDERED: CHOLECALCIFEROL 5,000u TAB ONE (08:32)
[2019-11-30] MEDS ORDERED: GABAPENTIN 400 MG CAPSULE ONE (08:32)
[2019-11-30] MEDS ORDERED: FUROSEMIDE 20 MG TABLET ONE (08:32)
[2019-11-30] MEDS ORDERED: SENNA/DOCUSATE TABLET ONE (08:32)
[2019-11-30] MEDS ORDERED: AMIODARONE 200 MG TABLET ONE (08:33)
[2019-11-30] MEDS: AMIODARONE 200 MG TABLET PO SCH (09:23)
[2019-11-30] MEDS: metFORMIN 500 MG TABLET PO SCH ×3 (09:24→23:19)
[2019-11-30] MEDS: DIGOXIN 0.125 MG TABLET PO SCH (09:24)
[2019-11-30] MEDS: FUROSEMIDE 20 MG TABLET PO SCH (09:25)
[2019-11-30] MEDS: MULTIVITAMIN 1 TABLET PO SCH (09:26)
[2019-11-30] MEDS: SENNA/DOCUSATE TABLET PO SCH (09:27)
[2019-11-30] MEDS: FAMOTIDINE 20 MG TABLET PO SCH (09:27)
[2019-11-30] MEDS: METOPROLOL SUCCINATE 25 MG TAB.ER.24H PO SCH (09:28)
--- NOTE | 2019-11-30 09:40 | NUR ---
THIRD MED REQUEST SLIP SENT FOR MEDICATIONS.
[2019-11-30] MEDS ORDERED: PANTOPRAZOLE 40MG TABLET ONE (09:54)
[2019-11-30] MEDS ORDERED: MAGNESIUM SULFATE PMX 2GM/50ML 50 ML IV ONE (10:00)
--- NOTE | 2019-11-30 10:08 | NUR ---
PT AMBULATES TO BATHROOM WITH RACQUEL JONES. NAD NOTED AT THIS TIME.
[2019-11-30] MEDS: PANTOPRAZOLE 40MG TABLET PO SCH (10:26)
[2019-11-30] MEDS: CHOLECALCIFEROL 1,000 UNIT TABLET PO SCH ×2 (10:27→21:29)
[2019-11-30] MEDS: FERROUS SULFATE 325 MG TABLET PO SCH ×2 (10:27→21:29)
[2019-11-30] MEDS: GABAPENTIN 100 MG CAPSULE PO SCH ×2 (10:27→21:29)
[2019-11-30] MEDS ORDERED: MAGNESIUM SULFATE PMX 2GM/50ML 50 ML ONE (10:52)
--- NOTE | 2019-11-30 12:08 | NUR ---
BEDSIDE REPORT RECEIVED FROM RACQUEL IVORY FOR TRANSFER OF PATIENT CARE.
--- NOTE | 2019-11-30 12:22 | NUR ---
REPORT TO RACQUEL LIND.
[2019-11-30] MEDS: SODIUM CHLORIDE 0.9% 1,000 ML IV SCH ×2 (12:37→20:29)
--- NOTE | 2019-11-30 12:47 | NUR ---
PATIENT LYING IN GURNEY WATCHING TV, CONNECTED TO VEHICLE BODY SANDER, NS HUNG AT 75 MLS/HR, JUICE PROVIDED TO PATIENT, SIDE RAILS UP X2, CALL LIGHT WITHIN REACH, NO FURTHER NEEDS AT THIS TIME.
--- NOTE | 2019-11-30 14:02 | NUR ---
PATIENT RESTING IN GURNEY WITH EYES CLOSED, CONNECTED TO VITALS MACHINE, SIDE RAILS UP X2, CALL LIGHT WITHIN REACH. PO VITAMIN-B12 REQUESTED FROM PHARMACY AGAIN.
--- NOTE | 2019-11-30 14:13 | NUR ---
UPDATED FAMILY ON POC.
[2019-11-30] MEDS: CYANOCOBALAMIN 1,000 MCG TABLET PO SCH (14:25)
--- NOTE | 2019-11-30 16:59 | NUR ---
PATIENT RESTING IN GURNEY WATCHING TV, MEDICATED PER eMAR, CONNECTED TO LEAD SOFTWARE ENGINEER, SIDE RAILS UP X2, CALL LIGHT WITHIN REACH, NO FURTHER NEEDS AT THIS TIME.
--- NOTE | 2019-11-30 17:25 | NUR ---
PATIENT AMBULATED TO BATHROOM WITH STEADY GAIT, DINNER TRAY PROVIDED.
--- NOTE | 2019-11-30 17:51 | NUR ---
BREAK RN: PT EATING DINNER IN ROOM. VS STABLE. NO ACUTE DISTRESS NOTED. CALL LIGHT IN PLACE. WILL CONTINUE TO MONITOR WHILE PRIMARY RN IS ON BREAK.
--- NOTE | 2019-11-30 18:21 | NUR ---
REPORT GIVEN TO RACQUEL MCGARRY FOR TRANSFER OF PATIENT CARE.
--- NOTE | 2019-11-30 18:22 | NUR ---
PT REPORT RECEIVED; CARE TO BE ASSUMED.
--- NOTE | 2019-11-30 18:45 | NUR ---
REPORT CALLED TO RACQUEL CHIU FOR ROOM 446
[2019-11-30 19:33] VITALS: BP 94/52
[2019-11-30] MEDS: EZETIMIBE 10 MG TABLET PO SCH (21:29)
[2019-11-30] MEDS ORDERED: SIMVASTATIN 10 MG TABLET PO SCH (21:30)
[2019-11-30] MEDS: FINASTERIDE 5 MG TABLET PO SCH (21:30)
[2019-11-30 23:51] LABS: CLOSTRIDIUM DIFFICILE ANTIGEN NEGATIVE; CLOSTRIDIUM DIFFICILE TOXIN NEGATIVE (Negative)
[2019-12-01 01:29] VITALS: BP 100/57
[2019-12-01] MEDS: HEPARIN 5,000 UNITS/ML, 1ML SQ SCH ×2 (05:20→13:07)
[2019-12-01 05:50] LABS: MEAN CORPUSCULAR HEMOGLOBIN 34.7 pg (27.5-34.5); MEAN CORPUSCULAR HGB CONC 33.4 g/dL (33.2-36.2); MEAN PLATELET VOLUME 7.6 fL (7.4-10.4); PLATELET COUNT 199 x10^3/uL (130-400); RED BLOOD COUNT 2.31 x10^6/uL (4.38-5.82); RED CELL DISTRIBUTION WIDTH 15.3 % (9.4-14.8)
[2019-12-01 05:59] LABS: CHLORIDE 110 mmol/L (98-107)
[2019-12-01 06:04] LABS: ANION GAP 4 mmol/L (5-15); CALCIUM 8.1 mg/dL (8.5-10.1); CREATININE 0.77 mg/dL (0.7-1.3)
[2019-12-01 06:46] LABS: MD YES
[2019-12-01 06:53] LABS: BAND#(MANUAL) 2.23 x10^3/uL; BANDS%(MANUAL) 17 % (0-7); LYMPH#(MANUAL) 0.26 x10^3/uL (1-3.4); LYMPHS% (MANUAL) 2 % (22-44); METAMYELOCYTES# (MANUAL) 0.66 x10^3/uL (0-0); METAMYELOCYTES% (MANUAL) 5 % (0-1); MONOS#(MANUAL) 0.79 x10^3/uL (0.3-2.7); MONOS% (MANUAL) 6 % (2-9); MYELOCYTES# (MANUAL) 0.26 x10^3/uL (0-0); MYELOCYTES% (MANUAL) 2 % (0-0); SEG#(MANUAL) 8.91 x10^3/uL (1.8-6.8); SEGS% (MANUAL) 68 % (42-75)
[2019-12-01 06:54] LABS: ANISOCYTOSIS 1+; OVALOCYTES 1+; POLYCHROMASIA 1+
[2019-12-01 06:55] LABS: <PLATELET ESTIMATE> ADEQUATE; <PLT MORPHOLOGY> NORMAL PLT MORPH; TOXIC GRAN 1+
[2019-12-01] MEDS: PANTOPRAZOLE 40MG TABLET PO SCH (08:28)
[2019-12-01] MEDS ORDERED: FAMOTIDINE 40 MG TABLET ONE (08:39)
[2019-12-01] MEDS: metFORMIN 500 MG TABLET PO SCH ×2 (08:46→15:53)
[2019-12-01] MEDS: CHOLECALCIFEROL 1,000 UNIT TABLET PO SCH (08:46)
[2019-12-01] MEDS: CYANOCOBALAMIN 1,000 MCG TABLET PO SCH (08:47)
[2019-12-01] MEDS: FERROUS SULFATE 325 MG TABLET PO SCH (08:47)
[2019-12-01] MEDS: GABAPENTIN 100 MG CAPSULE PO SCH (08:47)
[2019-12-01] MEDS: FAMOTIDINE 20 MG TABLET PO SCH (08:48)
[2019-12-01] MEDS: MULTIVITAMIN 1 TABLET PO SCH (08:48)
[2019-12-01] MEDS: AMIODARONE 200 MG TABLET PO SCH (08:50)
[2019-12-01] MEDS: METOPROLOL SUCCINATE 25 MG TAB.ER.24H PO SCH (08:50)
[2019-12-01] MEDS: SENNA/DOCUSATE TABLET PO SCH (08:52)
[2019-12-01] MEDS: FUROSEMIDE 20 MG TABLET PO SCH (08:52)
[2019-12-01] MEDS: DIGOXIN 0.125 MG TABLET PO SCH (08:52)
[2019-12-01 09:01] VITALS: BP 105/67
[2019-12-01] MEDS: SODIUM CHLORIDE 0.9% 1,000 ML IV SCH (09:01)
[2019-12-01] MEDS ORDERED: MAGNESIUM SULFATE PMX 4GM/100M 100 ML IVPB ONE (11:00)
[2019-12-01 14:15] VITALS: BP 98/55
[2019-12-01 18:18] LABS: ALBUMIN 2.6 g/dL (3.4-5.0); ANION GAP 5 mmol/L (5-15); CALCIUM 8.4 mg/dL (8.5-10.1); CHLORIDE 107 mmol/L (98-107); CREATININE 0.87 mg/dL (0.7-1.3)
== END 2019-12-01 19:04 | disposition home or self-care (01) | DRG 181 ==
LOC: ED 16:48 → EDIP 19:51 → 4NE 11-30 19:24
PROVIDERS: ADMIT Family Medicine; ATTEND Family Medicine
DX: C34.90 Malignant neoplasm of unspecified part of unspecified bronchus or lung (principal); R65.10 Systemic inflammatory response syndrome (SIRS) of non-infectious origin without acute organ dysfunction; D68.69 Other thrombophilia; I48.20 Chronic atrial fibrillation, unspecified; I50.32 Chronic diastolic (congestive) heart failure; E83.42 Hypomagnesemia; I25.10 Atherosclerotic heart disease of native coronary artery without angina pectoris; Z86.73 Personal history of transient ischemic attack (TIA), and cerebral infarction without residual deficits; E78.5 Hyperlipidemia, unspecified; F17.200 Nicotine dependence, unspecified, uncomplicated; N40.0 Benign prostatic hyperplasia without lower urinary tract symptoms; Z86.711 Personal history of pulmonary embolism; Z87.442 Personal history of urinary calculi; Z95.2 Presence of prosthetic heart valve; D53.9 Nutritional anemia, unspecified; Z85.820 Personal history of malignant melanoma of skin; E11.9 Type 2 diabetes mellitus without complications; I11.0 Hypertensive heart disease with heart failure; I27.20 Pulmonary hypertension, unspecified; Z85.46 Personal history of malignant neoplasm of prostate; Z79.84 Long term (current) use of oral hypoglycemic drugs; I65.29 Occlusion and stenosis of unspecified carotid artery; N20.0 Calculus of kidney
CPT/HCPCS: 36415; 71045; 71250; 80048; 80053; 80162; 81003; 82040; 82607; 83605; 83735; 84145; 85025; 87040; 87324; 93005; G0378; J0696; J1644; J3475; J7030

== ENCOUNTER → 2019-12-06 | Outpatient (CLI) | payer MEDICARE, OTHER ==
[~2019-12-06] MED LIST changes: +LIDOCAINE 1%, 10ML ONE
== END | disposition home or self-care (01) ==
LOC: RAD 12:09
PROVIDERS: ATTEND Internal Medicine Hematology & Oncology
DX: J90 Pleural effusion, not elsewhere classified (principal); C34.81 Malignant neoplasm of overlapping sites of right bronchus and lung; F17.210 Nicotine dependence, cigarettes, uncomplicated; Z79.899 Other long term (current) drug therapy; Z72.89 Other problems related to lifestyle; Z82.49 Family history of ischemic heart disease and other diseases of the circulatory system
CPT/HCPCS: 32555

== ENCOUNTER → 2019-12-17 | Outpatient (CLI) | payer MEDICARE, OTHER ==
[~2019-12-17] MED LIST changes: -LIDOCAINE 1%, 10ML ONE; +OMNIPAQUE 350 MG/ML, 100ML BOTTLE ONE
== END | disposition home or self-care (01) ==
LOC: CFH 12:13
PROVIDERS: ATTEND Radiology Radiation Oncology
DX: C34.81 Malignant neoplasm of overlapping sites of right bronchus and lung (principal); E11.9 Type 2 diabetes mellitus without complications; G31.89 Other specified degenerative diseases of nervous system; I67.82 Cerebral ischemia; G93.89 Other specified disorders of brain
CPT/HCPCS: 70470; Q9967

== ENCOUNTER 2019-12-20 07:21 | Outpatient (CLI) | payer MEDICARE, OTHER ==
[~2019-12-20 07:21] MED LIST changes: -OMNIPAQUE 350 MG/ML, 100ML BOTTLE ONE
== END 2019-12-20 23:59 | disposition home or self-care (01) ==
LOC: ROC 07:21
PROVIDERS: ATTEND Radiology Radiation Oncology
DX: C34.81 Malignant neoplasm of overlapping sites of right bronchus and lung (principal); I13.0 Hypertensive heart and chronic kidney disease with heart failure and stage 1 through stage 4 chronic kidney disease, or unspecified chronic kidney disease; E11.22 Type 2 diabetes mellitus with diabetic chronic kidney disease; N18.9 Chronic kidney disease, unspecified; I50.32 Chronic diastolic (congestive) heart failure; E78.5 Hyperlipidemia, unspecified; I25.10 Atherosclerotic heart disease of native coronary artery without angina pectoris; I48.91 Unspecified atrial fibrillation; I48.20 Chronic atrial fibrillation, unspecified; E11.42 Type 2 diabetes mellitus with diabetic polyneuropathy; Z87.891 Personal history of nicotine dependence; Z79.899 Other long term (current) drug therapy; Z95.0 Presence of cardiac pacemaker; Z79.84 Long term (current) use of oral hypoglycemic drugs; Z86.73 Personal history of transient ischemic attack (TIA), and cerebral infarction without residual deficits
CPT/HCPCS: G0463

== ENCOUNTER 2019-12-21 11:18 | Emergency (ER) | payer MEDICARE, OTHER ==
[~2019-12-21] VITALS: Ht 165.1 cm; Wt 66.3 kg
--- NOTE | 2019-12-21 11:20 | NUR ---
PT IN BATHROOM WHEN CALLED BACK FOR TRIAGE.
--- NOTE | 2019-12-21 11:28 | NUR ---
PT REMAINS IN BATHROOM WHILE AWAITING TRIAGE.
[2019-12-21 12:45] LABS: MEAN CORPUSCULAR HEMOGLOBIN 32.6 pg (27.5-34.5); MEAN CORPUSCULAR HGB CONC 32.4 g/dL (33.2-36.2); MEAN PLATELET VOLUME 7.8 fL (7.4-10.4); PLATELET COUNT 279 x10^3/uL (130-400); RED BLOOD COUNT 3.26 x10^6/uL (4.38-5.82); RED CELL DISTRIBUTION WIDTH 18.2 % (9.4-14.8)
--- NOTE | 2019-12-21 12:49 | NUR ---
PT CAME IN CO OF SOB, CHEST PRESSURE X 10 DAYS. PT HAS HX OF LUNG MASSES. PT STATES "I NEED TO GET MY LUNGS DRAINED". PT RESTING IN GURNEY. NAD. CONNECTED TO MONITORING EQUIPMENT.
[2019-12-21 12:58] LABS: ALBUMIN 3.2 g/dL (3.4-5.0); ANION GAP 6 mmol/L (5-15); CALCIUM 8.7 mg/dL (8.5-10.1); CHLORIDE 104 mmol/L (98-107)
[2019-12-21 13:02] LABS: ALANINE AMINOTRANSFERASE 23 U/L (12-78); ALKALINE PHOSPHATASE 202 U/L (45-117); BILIRUBIN,TOTAL 0.5 mg/dL (0.2-1.0); CREATININE 1.05 mg/dL (0.7-1.3); TOTAL PROTEIN 6.9 g/dL (6.4-8.2)
[2019-12-21 13:14] LABS: MD YES
[2019-12-21 13:16] LABS: ANISOCYTOSIS 1+; BAND#(MANUAL) 2.83 x10^3/uL; BANDS%(MANUAL) 9 % (0-7); LYMPH#(MANUAL) 1.88 x10^3/uL (1-3.4); LYMPHS% (MANUAL) 6 % (22-44); METAMYELOCYTES# (MANUAL) 1.88 x10^3/uL (0-0); METAMYELOCYTES% (MANUAL) 6 % (0-1); MONOS#(MANUAL) 3.45 x10^3/uL (0.3-2.7); MONOS% (MANUAL) 11 % (2-9); MYELOCYTES# (MANUAL) 2.51 x10^3/uL (0-0); MYELOCYTES% (MANUAL) 8 % (0-0); POLYCHROMASIA 1+; SEG#(MANUAL) 18.84 x10^3/uL (1.8-6.8); SEGS% (MANUAL) 60 % (42-75); TOXIC GRAN 1+
[2019-12-21 13:17] LABS: <PLATELET ESTIMATE> ADEQUATE; <PLT MORPHOLOGY> NORMAL PLT MORPH
[2019-12-21] MEDS ORDERED: LIDOCAINE 1%, 10ML ONE (13:28)
--- NOTE | 2019-12-21 13:45 | NUR ---
LATE ENTRY: PT TO RAD AT THIS TIME
[2019-12-21 14:17] VITALS: BP 112/81
--- NOTE | 2019-12-21 14:17 | NUR ---
PT BACK FROM RAD. TOLERATED WELL. UP FOR RECHECK
== END 2019-12-21 15:11 | disposition home or self-care (01) ==
LOC: ED 12:07
DX: C34.31 Malignant neoplasm of lower lobe, right bronchus or lung (principal); J91.0 Malignant pleural effusion; D63.0 Anemia in neoplastic disease; R63.5 Abnormal weight gain; R00.0 Tachycardia, unspecified; I48.91 Unspecified atrial fibrillation; E11.9 Type 2 diabetes mellitus without complications; I11.0 Hypertensive heart disease with heart failure; I50.9 Heart failure, unspecified; E78.5 Hyperlipidemia, unspecified; Z95.0 Presence of cardiac pacemaker; Z86.73 Personal history of transient ischemic attack (TIA), and cerebral infarction without residual deficits; Z98.61 Coronary angioplasty status; Z95.4 Presence of other heart-valve replacement
CPT/HCPCS: 32555; 36415; 71045; 80053; 85025; 87070; 87205; 89051; 93005; 99285; J3490

== ENCOUNTER → 2019-12-27 | Outpatient (CLI) | payer MEDICARE, OTHER ==
[~2019-12-27] MED LIST changes: +LIDOCAINE 1%, 10ML ONE
== END | disposition home or self-care (01) ==
LOC: RAD 12:13
PROVIDERS: ATTEND Internal Medicine Hematology & Oncology
DX: C34.81 Malignant neoplasm of overlapping sites of right bronchus and lung (principal); J91.0 Malignant pleural effusion
CPT/HCPCS: 32555

== ENCOUNTER → 2020-01-03 | Outpatient (CLI) | payer MEDICARE, OTHER | END | disposition home or self-care (01) | LOC: RAD 12:30 | PROVIDERS: ATTEND Internal Medicine Hematology & Oncology | DX: C34.81 Malignant neoplasm of overlapping sites of right bronchus and lung (principal); J91.0 Malignant pleural effusion; F17.210 Nicotine dependence, cigarettes, uncomplicated; Z79.899 Other long term (current) drug therapy; Z72.89 Other problems related to lifestyle | CPT/HCPCS: 32555 ==

== ENCOUNTER → 2020-01-10 | Outpatient (CLI) | payer MEDICARE, OTHER | END | disposition home or self-care (01) | LOC: RAD 08:35 | PROVIDERS: ATTEND Internal Medicine Hematology & Oncology | DX: C34.81 Malignant neoplasm of overlapping sites of right bronchus and lung (principal) | CPT/HCPCS: 32555 ==

== ENCOUNTER 2020-01-22 10:16 | Outpatient (CLI) | payer MEDICARE, OTHER ==
[~2020-01-22 10:16] MED LIST changes: -LIDOCAINE 1%, 10ML ONE
[2020-01-22] MEDS ORDERED: LIDOCAINE 1%, 10ML ONE (10:25)
== END 2020-01-22 23:59 | disposition home or self-care (01) ==
LOC: RAD 10:16
PROVIDERS: ATTEND Internal Medicine Hematology & Oncology
DX: C34.81 Malignant neoplasm of overlapping sites of right bronchus and lung (principal); Z79.899 Other long term (current) drug therapy; Z72.0 Tobacco use; Z72.89 Other problems related to lifestyle
CPT/HCPCS: 32555

== ENCOUNTER 2020-01-24 12:08 | Outpatient (CLI) | payer MEDICARE, OTHER ==
[~2020-01-24 12:08] MED LIST changes: +LIDOCAINE 1%, 10ML ONE
== END 2020-01-24 23:59 | disposition home or self-care (01) ==
LOC: RAD 12:08
PROVIDERS: ATTEND Internal Medicine Hematology & Oncology
DX: C34.81 Malignant neoplasm of overlapping sites of right bronchus and lung (principal)
CPT/HCPCS: 32555

== ENCOUNTER 2020-01-26 13:21 | Inpatient (IN) | payer MEDICARE, OTHER ==
[~2020-01-26] VITALS: Ht 165.1 cm; Wt 68.0 kg
[~2020-01-26 13:21] MED LIST changes: -LIDOCAINE 1%, 10ML ONE
[2020-01-26 14:14] LABS: ALBUMIN 2.5 g/dL (3.4-5.0); ANION GAP 5 mmol/L (5-15); CALCIUM 8.4 mg/dL (8.5-10.1); CHLORIDE 104 mmol/L (98-107)
[2020-01-26 14:19] LABS: MEAN CORPUSCULAR HEMOGLOBIN 33.9 pg (27.5-34.5); MEAN CORPUSCULAR HGB CONC 33.2 g/dL (33.2-36.2); RED BLOOD COUNT 2.48 x10^6/uL (4.38-5.82); RED CELL DISTRIBUTION WIDTH 23.7 % (9.4-14.8)
[2020-01-26 14:59] LABS: PLATELET COUNT 20 x10^3/uL (130-400)
[2020-01-26 15:00] LABS: MD YES
[2020-01-26] MEDS ORDERED: CEFTRIAXONE PMX 1GM/50ML 50 ML ONE (15:20)
[2020-01-26] MEDS ORDERED: SODIUM CHLORIDE FLUSH 10ML SYR IVF ONE (15:30)
[2020-01-26] MEDS ORDERED: CEFTRIAXONE PMX 1GM/50ML 50 ML IVPB ONE (15:30)
[2020-01-26] MEDS ORDERED: SODIUM CHLORIDE 0.9% 1,000ML IVBOLUS ONE (15:30)
[2020-01-26 15:32] LABS: BAND#(MANUAL) 3.77 x10^3/uL; BANDS%(MANUAL) 13 % (0-7); LYMPH#(MANUAL) 0.29 x10^3/uL (1-3.4); LYMPHS% (MANUAL) 1 % (22-44); METAMYELOCYTES# (MANUAL) 0.29 x10^3/uL (0-0); METAMYELOCYTES% (MANUAL) 1 % (0-1); MONOS#(MANUAL) 0.58 x10^3/uL (0.3-2.7); MONOS% (MANUAL) 2 % (2-9); MYELOCYTES# (MANUAL) 0.29 x10^3/uL (0-0); MYELOCYTES% (MANUAL) 1 % (0-0); SEG#(MANUAL) 23.78 x10^3/uL (1.8-6.8); SEGS% (MANUAL) 82 % (42-75)
[2020-01-26 15:36] LABS: OVALOCYTES 1+; TOXIC GRAN 1+
[2020-01-26 15:37] LABS: <PLATELET ESTIMATE> DECREASED; <PLT MORPHOLOGY> NORMAL PLT MORPH
[2020-01-26 16:44] LABS: TROPONIN I < 0.015 ng/mL (0.000-0.045)
[2020-01-26 17:06] LABS: MICROSCOPIC AUTO
[2020-01-26] MEDS ORDERED: hydrALAzine 20 MG/ML, 1ML IVPush PRN (17:30)
[2020-01-26] MEDS ORDERED: PHARMACY MAY ADJ FOR RENAL FX MC PRN (17:30)
[2020-01-26] MEDS ORDERED: DOCUSATE 100 MG CAPSULE PO PRN (17:30)
[2020-01-26] MEDS ORDERED: CYCLOBENZAPRINE 10 MG TABLET PO PRN (17:30)
[2020-01-26] MEDS ORDERED: ACETAMINOPHEN 325 MG TABLET PO PRN (17:30)
[2020-01-26] MEDS ORDERED: morphine SULFATE 10 MG/ML, 1ML IVPush PRN (17:30)
[2020-01-26] MEDS ORDERED: ONDANSETRON 2MG/ML, 2ML IVPush PRN (17:30)
[2020-01-26] MEDS ORDERED: GUAIFENESIN/DM 200-20MG, 10ML UDC PO PRN (17:30)
[2020-01-26] MEDS ORDERED: OXYcodone IR 5MG TABLET PO PRN (17:30)
[2020-01-26] MEDS ORDERED: FUROSEMIDE 20 MG/2 ML ONE (17:52)
[2020-01-26] MEDS ORDERED: PANTOPRAZOLE 40MG TABLET PO SCH (18:00)
[2020-01-26 18:23] LABS: TROPONIN I 0.017 ng/mL (0.000-0.045)
[2020-01-26] MEDS: FUROSEMIDE 20 MG/2 ML IV SCH (19:39)
[2020-01-26 19:42] VITALS: BP 105/68
[2020-01-26] MEDS: ASCORBIC ACID 500 MG TABLET PO SCH (20:35)
[2020-01-26] MEDS: EZETIMIBE 10 MG TABLET PO SCH (20:35)
[2020-01-26] MEDS: FAMOTIDINE 20 MG TABLET PO SCH (20:35)
[2020-01-26] MEDS: SIMVASTATIN 10 MG TABLET PO SCH (20:35)
[2020-01-26] MEDS: TEMAZEPAM 15 MG CAPSULE PO PRN (20:35)
[2020-01-26] MEDS: CHOLECALCIFEROL 1,000 UNIT TABLET PO SCH (20:35)
[2020-01-26] MEDS ORDERED: SIMVASTATIN PO SCH (21:00)
[2020-01-26] MEDS ORDERED: GLUCOSAMINE HCL PO SCH (21:00)
[2020-01-26] MEDS ORDERED: EZETIMIBE PO SCH (21:00)
[2020-01-26] MEDS ORDERED: [UNRECOGNIZED DRUG - OTHER] PO SCH (21:00)
[2020-01-27] VITALS (9 sets, daily range): BP systolic 90–118; BP diastolic 49–86
[2020-01-27 00:16] LABS: TROPONIN I < 0.015 ng/mL (0.000-0.045)
[2020-01-27 06:05] LABS: MEAN CORPUSCULAR HGB CONC 34.3 g/dL (33.2-36.2); MEAN PLATELET VOLUME 8.6 fL (7.4-10.4); RED BLOOD COUNT 2.33 x10^6/uL (4.38-5.82); RED CELL DISTRIBUTION WIDTH 24.4 % (9.4-14.8)
[2020-01-27 06:16] LABS: CHLORIDE 105 mmol/L (98-107)
[2020-01-27 06:32] LABS: ANION GAP 6 mmol/L (5-15); CALCIUM 8.5 mg/dL (8.5-10.1); CREATININE 0.74 mg/dL (0.7-1.3); TROPONIN I < 0.015 ng/mL (0.000-0.045)
[2020-01-27] MEDS: DEXAMETHASONE 4 MG TABLET PO SCH ×2 (07:48→16:57)
[2020-01-27] MEDS: FUROSEMIDE 20 MG/2 ML IV SCH (07:48)
[2020-01-27] MEDS: ASCORBIC ACID 500 MG TABLET PO SCH ×2 (07:48→21:20)
[2020-01-27] MEDS: FAMOTIDINE 20 MG TABLET PO SCH (07:48)
[2020-01-27] MEDS: CHOLECALCIFEROL 1,000 UNIT TABLET PO SCH ×2 (07:49→21:20)
[2020-01-27 08:45] LABS: MD YES; PLATELET COUNT 9 x10^3/uL (130-400)
[2020-01-27 08:47] LABS: <PLATELET ESTIMATE> DECREASED; <PLT MORPHOLOGY> NORMAL PLT MORPH; ANISOCYTOSIS 1+; BAND#(MANUAL) 0.49 x10^3/uL; BANDS%(MANUAL) 5 % (0-7); METAMYELOCYTES# (MANUAL) 0.29 x10^3/uL (0-0); METAMYELOCYTES% (MANUAL) 3 % (0-1); MONOS% (MANUAL) 2 % (2-9); SEG#(MANUAL) 8.82 x10^3/uL (1.8-6.8); SEGS% (MANUAL) 90 % (42-75); TOXIC GRAN 1+
[2020-01-27] MEDS ORDERED: ZINC SULFATE 220 MG CAPSULE PO SCH (09:00)
[2020-01-27] MEDS ORDERED: MULTIVITAMIN 1 TABLET PO SCH (09:00)
[2020-01-27] MEDS ORDERED: METOPROLOL SUCCINATE 25 MG TAB.ER.24H PO SCH (09:00)
[2020-01-27] MEDS ORDERED: CYANOCOBALAMIN 1,000 MCG TABLET PO SCH (09:00)
[2020-01-27] MEDS ORDERED: DIGOXIN 0.125 MG TABLET PO SCH (09:00)
[2020-01-27] MEDS ORDERED: FAMOTIDINE 20 MG TABLET PO SCH (09:00)
[2020-01-27] MEDS ORDERED: ACETAMINOPHEN 325 MG TABLET PO ONE (11:30)
[2020-01-27] MEDS ORDERED: CEFTRIAXONE PMX 1GM/50ML 50 ML IV SCH (15:30)
[2020-01-27] MEDS ORDERED: PANTOPRAZOLE 40MG TABLET PO SCH (18:00)
[2020-01-27] MEDS: EZETIMIBE 10 MG TABLET PO SCH (21:20)
[2020-01-27] MEDS: TEMAZEPAM 15 MG CAPSULE PO PRN (21:21)
[2020-01-27] MEDS: SIMVASTATIN 10 MG TABLET PO SCH (21:21)
[2020-01-28 00:39] VITALS: BP 103/66
[2020-01-28 05:26] LABS: MEAN CORPUSCULAR HEMOGLOBIN 34.7 pg (27.5-34.5); MEAN CORPUSCULAR HGB CONC 33.6 g/dL (33.2-36.2); MEAN PLATELET VOLUME 8.4 fL (7.4-10.4); RED BLOOD COUNT 2.47 x10^6/uL (4.38-5.82)
[2020-01-28 05:27] LABS: PLATELET COUNT 17 x10^3/uL (130-400)
[2020-01-28 05:35] LABS: ANION GAP 6 mmol/L (5-15); CALCIUM 8.6 mg/dL (8.5-10.1); CHLORIDE 103 mmol/L (98-107); CREATININE 1.22 mg/dL (0.7-1.3)
[2020-01-28 06:04] LABS: MD YES
[2020-01-28 06:06] LABS: BANDS%(MANUAL) 11 % (0-7); LYMPH#(MANUAL) 0.07 x10^3/uL (1-3.4); LYMPHS% (MANUAL) 2 % (22-44); METAMYELOCYTES# (MANUAL) 0.04 x10^3/uL (0-0); METAMYELOCYTES% (MANUAL) 1 % (0-1); MONOS#(MANUAL) 0.11 x10^3/uL (0.3-2.7); MONOS% (MANUAL) 3 % (2-9); SEG#(MANUAL) 2.99 x10^3/uL (1.8-6.8); SEGS% (MANUAL) 83 % (42-75)
[2020-01-28 06:07] LABS: <PLATELET ESTIMATE> DECREASED; <PLT MORPHOLOGY> NORMAL PLT MORPH; ANISOCYTOSIS 1+; TOXIC GRAN 1+
== END 2020-01-28 06:40 | disposition expired | DRG 871 ==
LOC: ED 15:02 → EDIP 16:58 → 4WST 19:03
PROVIDERS: ADMIT Family Medicine; ATTEND Internal Medicine
PROC: 30233R1 Transfusion of Nonautologous Platelets into Peripheral Vein, Percutaneous Approach (ICD-10-PCS; principal; 2020-01-27)
DX: A41.89 Other specified sepsis (principal); J96.21 Acute and chronic respiratory failure with hypoxia; U07.1 COVID-19; J12.89 Other viral pneumonia; S32.030A Wedge compression fracture of third lumbar vertebra, initial encounter for closed fracture; C34.90 Malignant neoplasm of unspecified part of unspecified bronchus or lung; D50.9 Iron deficiency anemia, unspecified; Z66 Do not resuscitate; D53.9 Nutritional anemia, unspecified; D69.6 Thrombocytopenia, unspecified; E11.65 Type 2 diabetes mellitus with hyperglycemia; E78.5 Hyperlipidemia, unspecified; E83.42 Hypomagnesemia; G89.11 Acute pain due to trauma; I11.0 Hypertensive heart disease with heart failure; I25.10 Atherosclerotic heart disease of native coronary artery without angina pectoris; F17.200 Nicotine dependence, unspecified, uncomplicated; I27.20 Pulmonary hypertension, unspecified; I48.91 Unspecified atrial fibrillation; I50.9 Heart failure, unspecified; N40.1 Benign prostatic hyperplasia with lower urinary tract symptoms; W18.39XA Other fall on same level, initial encounter; Y93.89 Activity, other specified; Y92.89 Other specified places as the place of occurrence of the external cause; Y99.8 Other external cause status; Z92.21 Personal history of antineoplastic chemotherapy; Z95.2 Presence of prosthetic heart valve
CPT/HCPCS: 36415; 70450; 71045; 72110; 80048; 80162; 81001; 82040; 82962; 83605; 83735; 83880; 84100; 84145; 84443; 84484; 85025; 85049; 86850; 86900; 87040; 93005; 93306; G0378; J0696; J1940; J7030; P9035; U0003